=== PATIENT | male | born 1980 | race Caucasian/White ===

== ENCOUNTER 2017-04-18 10:13 | Observation (INO) ==
[2017-04-18] MEDS ORDERED: Aspirin 81 MG TAB.CHEW PO ONE (10:20)
[2017-04-18 10:40] LABS: Basophils # 0.1 K/mcL (0.0-0.2); Eosinophils # 0.1 K/mcL (0.0-0.6); Eosinophils % 0.7 %; Hematocrit 48.4 % (37.5-50.1); Hemoglobin 16.2 g/dL (12.9-16.9); Immature Granulocytes % 0.3 % (0-4); Lymphocytes # 1.7 K/mcL (0.6-4.6); Lymphocytes % 25.2 %; Mean Corpuscular HGB Conc 33.5 g/dL (31.6-35.5); Mean Corpuscular Hemoglobin 31.4 pg (28.0-33.3); Mean Corpuscular Volume 93.8 fL (83.0-100.0); Mean Platelet Volume 9.4 fL (9.4-12.4); Monocytes # 0.4 K/mcL (0.0-1.3); Monocytes % 6.1 %; Neutrophils # 4.5 K/mcL (1.6-8.9); Platelet Count 327 K/mcL (140-400); Red Blood Count 5.16 M/mcL (4.19-5.50); Red Cell Distribution Width 12.8 % (11.5-14.5); Segmented Neutrophils % 66.7 %
--- NOTE | 2017-04-18 10:41 | Emergency Department Note ---
Disposition Clinical Impression: Chest pain Qualifiers: Chest pain type: unspecified Qualified Code(s): R07.9 - Chest pain, unspecified Disposition: Still a Patient Condition: Undetermined Referrals: Kwame Hernandez DO [Primary Care Provider] - Forms: ED Satisfaction Letter Time of Disposition: 11:00 Chest Pain HPI - General Chief Complaint: ED Chest Pain Stated Complaint: chest pain Time Seen by Provider: 04/18/17 10:20 Source: patient Limitations: no limitations Vital Signs Reviewed: Yes Nursing Notes Reviewed: Yes - History of Present Illness HPI Narrative: Alert and oriented nontoxic-appearing 36-year-old male presents for evaluation of left-sided chest pain that radiates to the left shoulder and a sensation of "my heart has been racing". Symptoms began yesterday. The pain is made worsened by deep inspiration. He denies any cough, sputum, or hemoptysis. He denies any fevers or chills. He does states that at the onset of symptoms, he became diaphoretic and extremely short of breath. He states that his primary care provider is currently undergoing workup for evaluation of this patient's intermittent episodes of left-sided chest pain. He states he had a recent stress test done and is scheduled for an echocardiogram next week. Pt complaint: chest pain Onset (ago): day(s) (Yesterday) Duration: constant Pain Location: left chest Severity scale (1-10): 7 Pain Radiation: LUE Improves with: nothing Worsens with: exertion Associated symptoms: Reports: diaphoresis, dyspnea, palpitations. Denies: nausea, vomiting, fever, cough Treatments prior to arrival chest pain: none - Related Data Previous Rx's Medication Instructions Recorded Famotidine [Pepcid] 20 mg PO BID #20 tablet 09/25/16 Hyoscyamine SL [Levsin SL] 0.125 mg SL TID #10 tab.subl 09/25/16 Ondansetron ODT [Zofran ODT] 4 mg SL Q6HR #10 tab.rapdis 09/25/16 Sucralfate [Carafate] 1 gm PO QIDAC #20 tablet 09/25/16 Allergies Allergy/AdvReac Type Severity Reaction Status Date / Time sulfamethoxazole Allergy Swelling Verified 04/18/17 10:13 [From Bactrim] of Lip/Tongue/Throat trimethoprim [From Bactrim] Allergy Swelling Verified 04/18/17 10:13 of Lip/Tongue/Throat All systems ED: reviewed and negative except as stated. Constitutional: Denies: fever, chills, weakness, weight change Eyes: Denies: eye pain, eye discharge, vision change ENT ED: Denies: ear pain, throat pain, dental pain, hearing loss, epistaxis, congestion, dysphagia Cardiovascular: Reports: as per HPI, chest pain, palpitations. Denies: dyspnea on exertion, edema, syncope Respiratory: Reports: as per HPI, dyspnea. Denies: cough, wheezes, hemoptysis, stridor Gastrointestinal: Denies: abdominal pain, nausea, vomiting, diarrhea, constipation, hematemesis, melena, hematochezia Genitourinary: Denies: urgency, dysuria, frequency, hematuria Musculoskeletal: Denies: back pain, neck pain, arthralgia, myalgia Integumentary: Denies: rash, abrasion, lesions Neurological: Denies: headache, weakness, numbness, paresthesias, confusion, abnormal gait, vertigo Psychiatric: Denies: anxiety, depression, suicidal thoughts, homicidal thoughts , auditory hallucinations, visual hallucinations Endocrine: Denies: fatigue Hematological/Lymphatic: Denies: easy bleeding, easy bruising Allergic/Immunologic: Denies: facial swelling, urticaria Chest Pain PMH - Past Medical History Medical history: Reports: cancer, GERD, GI bleed Psychiatric history: Reports: no psych history - Social History Smoking Status: Current every day smoker Alcohol use: Reports: occasionally Drug use: Reports: none Physical Exam - General Limitations: no limitations General appearance: alert, in no apparent distress - Head Head exam: atraumatic, normocephalic, normal inspection - Eye Eye exam: Present: normal appearance, PERRL, EOMI. Absent: nystagmus - ENT ENT exam: mucous membranes moist - Neck Neck exam: Present: normal inspection, full ROM, trachea midline - Chest Chest inspection: Present: normal inspection, symmetric chest wall rise - Respiratory Respiratory exam: Present: normal lung sounds bilaterally. Absent: respiratory distress, wheezes, stridor, accessory muscle use, prolonged expiratory phase - Cardiovascular Cardiovascular exam: Present: normal rhythm, tachycardia, normal heart sounds - Abdominal Exam Abdominal exam: Present: soft, Non-Tender, normal bowel sounds - Extremities Exam Extremities exam: Present: normal inspection, full ROM. Absent: tenderness, pedal edema - Neurological Exam Neurological exam: Present: alert, oriented X3 - Psychiatric Psychiatric exam: Present: normal affect, normal mood - Skin Skin exam: Present: warm, dry, intact, normal color. Absent: rash Course Vital Signs Temperature 97.5 F L 04/18/17 10:14 Pulse Rate 108 04/18/17 10:14 Respiratory Rate 22 04/18/17 10:14 Blood Pressure 151/92 04/18/17 10:14 O2 Sat by Pulse Oximetry 97 04/18/17 10:14 Temperature 97.5 F L 04/18/17 10:14 Pulse Rate 99 04/18/17 11:03 Respiratory Rate 18 04/18/17 11:03 Blood Pressure 142/88 04/18/17 11:03 O2 Sat by Pulse Oximetry 96 04/18/17 11:03 Oxygen Delivery Oxygen Delivery Room Air Chest Pain - Medical Records Medical records reviewed: Yes I reviewed the patient's medical records. - Lab Data Result diagrams: 04/18/17 10:27 04/18/17 10:27 Lab Results 04/18/17 04/18/17 04/18/17 Range/Units 10:27 10:27 10:27 WBC 6.7 (4.3-11.1) K/mcL RBC 5.16 (4.19-5.50) M/mcL Hgb 16.2 (12.9-16.9) g/dL Hct 48.4 (37.5-50.1) % MCV 93.8 (83.0-100.0) fL MCH 31.4 (28.0-33.3) pg MCHC 33.5 (31.6-35.5) g/dL RDW 12.8 (11.5-14.5) % Plt Count 327 (140-400) K/mcL MPV 9.4 (9.4-12.4) fL Immature Gran % 0.3 (0-4) % Seg Neutrophils % 66.7 % Lymphocytes % 25.2 % Monocytes % 6.1 % Eosinophils % 0.7 % Basophils % 1.0 % Neutrophils # 4.5 (1.6-8.9) K/mcL Lymphocytes # 1.7 (0.6-4.6) K/mcL Monocytes # 0.4 (0.0-1.3) K/mcL Eosinophils # 0.1 (0.0-0.6) K/mcL Basophils # 0.1 (0.0-0.2) K/mcL PT 10.7 (9.4-12.1) Seconds INR 1.0 APTT 28.2 (26.0-36.0) Seconds Sodium 138 (136-145) mEq/L Potassium 3.6 (3.5-5.1) mEq/L Chloride 103 (98-107) mEq/L Carbon Dioxide 28 (23-29) mEq/L BUN 11 (6-20) mg/dL Creatinine 0.88 (0.70-1.30) mg/dL Est GFR ( Amer) > 60 (> 60) Est GFR (Non-Af Amer) > 60 (> 60) BUN/Creatinine Ratio 13 (6-26) Glucose 91 (70-105) mg/dL Calculated Osmolality 285 (280-300) Calcium 9.8 (8.6-10.3) mg/dL Troponin I (< 0.04) ng/mL 04/18/17 Range/Units 10:27 WBC (4.3-11.1) K/mcL RBC (4.19-5.50) M/mcL Hgb (12.9-16.9) g/dL Hct (37.5-50.1) % MCV (83.0-100.0) fL MCH (28.0-33.3) pg MCHC (31.6-35.5) g/dL RDW (11.5-14.5) % Plt Count (140-400) K/mcL MPV (9.4-12.4) fL Immature Gran % (0-4) % Seg Neutrophils % % Lymphocytes % % Monocytes % % Eosinophils % % Basophils % % Neutrophils # (1.6-8.9) K/mcL Lymphocytes # (0.6-4.6) K/mcL Monocytes # (0.0-1.3) K/mcL Eosinophils # (0.0-0.6) K/mcL Basophils # (0.0-0.2) K/mcL PT (9.4-12.1) Seconds INR APTT (26.0-36.0) Seconds Sodium (136-145) mEq/L Potassium (3.5-5.1) mEq/L Chloride (98-107) mEq/L Carbon Dioxide (23-29) mEq/L BUN (6-20) mg/dL Creatinine (0.70-1.30) mg/dL Est GFR ( Amer) (> 60) Est GFR (Non-Af Amer) (> 60) BUN/Creatinine Ratio (6-26) Glucose (70-105) mg/dL Calculated Osmolality (280-300) Calcium (8.6-10.3) mg/dL Troponin I < 0.03 (< 0.04) ng/mL - EKG Data EKG attestation: Yes I reviewed and interpreted this EKG. EKG results narrative: EKG reviewed by Dr. Meade as well. EKG shows a sinus tachycardia with nonspecific ST and T-wave abnormality and a rate of 105 bpm. [place] interval 149, QRS duration 86, QT/QTc interval 307/368. No ectopy noted. No significant change when compared to an EKG dated from 03/21/17. S.B.A.Francisca. - S.Esther.A.RCassandra Situation: Demographics, MOA Background: Presenting Complaint, Relevant PMH, Meds, & Allergies Assessment: Vital Signs, Course and respsone to treatment, Exam Concerns, Patient/Family Expectation, Pertinant Lab Results, Outstanding Labs Recommendation: Barrier(s) to disposition, Recommendation based on pending studies, treatments, or consults S.B.A.R. Report Given to: Dr. Jose Montgomery Repor Time: 11:00
[2017-04-18 10:44] LABS: Prothrombin Time 10.7 Seconds (9.4-12.1)
[2017-04-18 10:47] LABS: Activated Partial Thrombo Time 28.2 Seconds (26.0-36.0)
[2017-04-18 11:13] LABS: BUN/Creatinine Ratio 13 (6-26); Blood Urea Nitrogen 11 mg/dL (6-20); Calcium 9.8 mg/dL (8.6-10.3); Carbon Dioxide 28 mEq/L (23-29); Chloride 103 mEq/L (98-107); Glucose 91 mg/dL (70-105); Osmolality,Calculated 285 (280-300); Potassium 3.6 mEq/L (3.5-5.1); Sodium 138 mEq/L (136-145); eGFR For African Americans > 60 (> 60); eGFR For Non-African Americans > 60 (> 60)
[2017-04-18] MEDS: Nitroglycerin 0.4 MG TAB.SUBL SL PRN ×2 (12:11→12:17)
--- NOTE | 2017-04-18 12:54 | Emergency Department Note ---
Disposition Clinical Impression: Chest pain Qualifiers: Chest pain type: unspecified Qualified Code(s): R07.9 - Chest pain, unspecified Disposition: Admitted As Inpatient Condition: Fair Referrals: Kwame Hernandez DO [Primary Care Provider] - Forms: ED Satisfaction Letter Time of Disposition: 12:53 Chest Pain HPI - General Chief Complaint: ED Chest Pain Stated Complaint: chest pain Time Seen by Provider: 04/18/17 10:20 Source: patient Mode of arrival: ambulatory Limitations: no limitations Vital Signs Reviewed: Yes Nursing Notes Reviewed: Yes - History of Present Illness HPI Narrative: Patient was evaluated by the primary provider. Please see their history of physical for complete documentation. Pain Location: left chest Severity scale (1-10): 7 Improves with: nothing Worsens with: exertion Associated symptoms: Reports: diaphoresis, dyspnea, palpitations. Denies: nausea, vomiting, fever, cough - Related Data Allergies Allergy/AdvReac Type Severity Reaction Status Date / Time sulfamethoxazole Allergy Swelling Verified 04/18/17 10:13 [From Bactrim] of Lip/Tongue/Throat trimethoprim [From Bactrim] Allergy Swelling Verified 04/18/17 10:13 of Lip/Tongue/Throat Constitutional: Denies: fever, chills, weakness, weight change Eyes: Denies: eye pain, eye discharge, vision change ENT ED: Denies: ear pain, throat pain, dental pain, hearing loss, epistaxis, congestion, dysphagia Cardiovascular: Reports: as per HPI, chest pain, palpitations. Denies: dyspnea on exertion, edema, syncope Respiratory: Reports: as per HPI, dyspnea. Denies: cough, wheezes, hemoptysis, stridor Gastrointestinal: Denies: abdominal pain, nausea, vomiting, diarrhea, constipation, hematemesis, melena, hematochezia Genitourinary: Denies: urgency, dysuria, frequency, hematuria Musculoskeletal: Denies: back pain, neck pain, arthralgia, myalgia Integumentary: Denies: rash, abrasion, lesions Neurological: Denies: headache, weakness, numbness, paresthesias, confusion, abnormal gait, vertigo Psychiatric: Denies: anxiety, depression, suicidal thoughts, homicidal thoughts , auditory hallucinations, visual hallucinations Endocrine: Denies: fatigue Hematological/Lymphatic: Denies: easy bleeding, easy bruising Allergic/Immunologic: Denies: facial swelling, urticaria Chest Pain PMH - Past Medical History Medical history: Reports: cancer, GERD, GI bleed Psychiatric history: Reports: no psych history - Social History Smoking Status: Current every day smoker Alcohol use: Reports: occasionally Drug use: Reports: none Physical Exam - General Limitations: no limitations General appearance: alert, in no apparent distress Course Course Narrative: 36-year-old male presents for evaluation of chest pain. Patient also noted to be tachycardic. Patient states he was recently evaluated in the past 3 months with an exercise stress test was a Holter monitor. States that he has been tachycardic in the 150s at home. Patient does note that he has history of anxiety. Patient exercise stress test revealed indeterminate for ischemia given baseline ST abnormality. Patient had workup obtained by the primary provider. - Reevaluation(s) Reevaluation #1: Patient was given nitroglycerin which helped relieve his pain. Time: 12:52 Vital Signs Temperature 97.5 F L 04/18/17 10:14 Pulse Rate 108 04/18/17 10:14 Respiratory Rate 22 04/18/17 10:14 Blood Pressure 151/92 04/18/17 10:14 O2 Sat by Pulse Oximetry 97 04/18/17 10:14 Temperature 97.5 F L 04/18/17 10:14 Pulse Rate 117 04/18/17 12:22 Respiratory Rate 18 04/18/17 12:22 Blood Pressure 107/77 04/18/17 12:22 O2 Sat by Pulse Oximetry 95 04/18/17 12:22 Oxygen Delivery Oxygen Delivery Room Air Chest Pain - MDM Narrative Medical decision making narrative: Patient presents for evaluation of chest pain as well as tachycardia. Patient does have a recent workup in the past several months with an exercise stress test which was indeterminate. Patient was given nitroglycerin which relieved his pain. Patient does have an element of anxiety however given the patient's indeterminate stress test patient would likely benefit from inpatient mission with a formal nuclear stress test. Patient does have outpatient schedule of an echo which can be obtained at the same time of the stress test. Patient had a negative d-dimer with low pretest probability of pulmonary and was in. Patient was given aspirin and nitroglycerin with relief of pain. Given these findings the patient is best evaluated as an inpatient. - Medical Records Medical records reviewed: Yes I reviewed the patient's medical records. - Lab Data Lab results reviewed: Yes I reviewed the patient's lab results. Result diagrams: 04/18/17 10:27 04/18/17 10:27 Lab Results 04/18/17 04/18/17 04/18/17 Range/Units 10:27 10:27 10:27 WBC 6.7 (4.3-11.1) K/mcL RBC 5.16 (4.19-5.50) M/mcL Hgb 16.2 (12.9-16.9) g/dL Hct 48.4 (37.5-50.1) % MCV 93.8 (83.0-100.0) fL MCH 31.4 (28.0-33.3) pg MCHC 33.5 (31.6-35.5) g/dL RDW 12.8 (11.5-14.5) % Plt Count 327 (140-400) K/mcL MPV 9.4 (9.4-12.4) fL Immature Gran % 0.3 (0-4) % Seg Neutrophils % 66.7 % Lymphocytes % 25.2 % Monocytes % 6.1 % Eosinophils % 0.7 % Basophils % 1.0 % Neutrophils # 4.5 (1.6-8.9) K/mcL Lymphocytes # 1.7 (0.6-4.6) K/mcL Monocytes # 0.4 (0.0-1.3) K/mcL Eosinophils # 0.1 (0.0-0.6) K/mcL Basophils # 0.1 (0.0-0.2) K/mcL PT 10.7 (9.4-12.1) Seconds INR 1.0 APTT 28.2 (26.0-36.0) Seconds D-Dimer (0-500) ng/mLFEU Sodium 138 (136-145) mEq/L Potassium 3.6 (3.5-5.1) mEq/L Chloride 103 (98-107) mEq/L Carbon Dioxide 28 (23-29) mEq/L BUN 11 (6-20) mg/dL Creatinine 0.88 (0.70-1.30) mg/dL Est GFR ( Amer) > 60 (> 60) Est GFR (Non-Af Amer) > 60 (> 60) BUN/Creatinine Ratio 13 (6-26) Glucose 91 (70-105) mg/dL Calculated Osmolality 285 (280-300) Calcium 9.8 (8.6-10.3) mg/dL Troponin I (< 0.04) ng/mL 04/18/17 04/18/17 Range/Units 10:27 10:27 WBC (4.3-11.1) K/mcL RBC (4.19-5.50) M/mcL Hgb (12.9-16.9) g/dL Hct (37.5-50.1) % MCV (83.0-100.0) fL MCH (28.0-33.3) pg MCHC (31.6-35.5) g/dL RDW (11.5-14.5) % Plt Count (140-400) K/mcL MPV (9.4-12.4) fL Immature Gran % (0-4) % Seg Neutrophils % % Lymphocytes % % Monocytes % % Eosinophils % % Basophils % % Neutrophils # (1.6-8.9) K/mcL Lymphocytes # (0.6-4.6) K/mcL Monocytes # (0.0-1.3) K/mcL Eosinophils # (0.0-0.6) K/mcL Basophils # (0.0-0.2) K/mcL PT (9.4-12.1) Seconds INR APTT (26.0-36.0) Seconds D-Dimer 238 (0-500) ng/mLFEU Sodium (136-145) mEq/L Potassium (3.5-5.1) mEq/L Chloride (98-107) mEq/L Carbon Dioxide (23-29) mEq/L BUN (6-20) mg/dL Creatinine (0.70-1.30) mg/dL Est GFR ( Amer) (> 60) Est GFR (Non-Af Amer) (> 60) BUN/Creatinine Ratio (6-26) Glucose (70-105) mg/dL Calculated Osmolality (280-300) Calcium (8.6-10.3) mg/dL Troponin I < 0.03 (< 0.04) ng/mL - Radiology Data Radiology results reviewed: Yes I reviewed the patient's radiology results. Chest X-Ray 04/18/17 10:21 IMPRESSION: Normal chest. D/ / 04/18/2017 11:46:24 Chris Lynn MD / manda Interpreting Provider: Chris Lynn MD Ul[facility] - Ul[facility] Situation: Demographics Background: Presenting Complaint Assessment: Vital Signs, Course and respsone to treatment, Patient/Family Expectation Recommendation: Barrier(s) to disposition, Recommendation based on pending studies, treatments, or consults Ulises Report Given to: Dr. Asha Montgomery Repor Time: 12:53 Attestation Statement - Attestation Attestation: I examined this patient and my medical decision-making was reviewed with the Resident Physician, Dr. Solano. I agree with the documented findings, disposition and treatment plan as described except to the extent set forth below. Patient is a 36-year-old white male who presents to the emergency department with a 2 day history of intermittent left-sided chest discomfort that is worse with inspiration associated with diaphoresis, nausea and shortness of breath. Patient has been evaluated in the past for chest pain secondary to an abnormal EKG and has undergone Holter monitoring, exercise stress testing and has an echo pending that was scheduled by his family doctor 2 weeks ago. Patient states pain began intermittently approximately 48 hours ago at rest and patient arrives with ongoing pain that he rates about an 8 out of 10 in severity. Patient is diaphoretic on my exam nauseated and appears anxious. I agree with patient's physical exam findings as documented. Patient is tachycardic in the room during my assessment but otherwise vitals stable. Patient's EKG shows sinus tachycardia at [address] changes. His is unchanged from his prior EKG that was used for comparison from March 21 of this year. Patient's lab evaluation including d-dimer and troponin are within normal limits , drug screen is positive for marijuana, chest x-ray is unremarkable. Asians pain was relieved with aspirin and nitroglycerin. Case was discussed with cardiology and patient will be admitted to the hospitalist service for further evaluation and management of this chest pain.
[2017-04-18] MEDS ORDERED: Naloxone 0.4 MG/ML INJ IVP PRN (12:58)
[2017-04-18 13:21] LABS: Bilirubin,Urine Small (Negative); Blood,Urine Negative (Negative); Clarity,Urine Clear (Clear); Color,Urine Yellow (Yellow); Glucose,Urine (UA) Normal (Normal); Ketones,Urine 15 mg/dL (Negative); Leukocyte Esterase,Urine Negative (Negative); Nitrite,Urine Negative (Negative); Protein,Urine Trace mg/dL (Neg-Trace); Specific Gravity,Urine 1.026 (1.010-1.025); Urobilinogen,Urine Normal (Normal)
--- NOTE | 2017-04-18 13:21 | Internal Med History&Physical ---
<Gerald Villegas - Last Filed: 04/18/17 13:18> Date of Encounter: 04/18/17 Time of Encounter: 13:18 Assessment and Plan (1) Chest pain Current visit: Yes Status: Acute ASSESSMENT: - Chest pain of unclear etiology. No prior h/o UT, or CAD and no fam hx. He is anxious upon exam and does have a h/o anxiety which is likely contributing to his pain/pressure/discomfort. CXR negative. Continues to have pressure. He reports that it worsened with SL nitro but also admits that his anxiety increased with the SL nitro as well. PLAN: - cardiac enzymes x 2 q 6 hr - EKG with nonspecific ST &T wave abnormalities - ASA 325 in ED and 81mg daily. Not on statin at home; give one dose simvastatin 40 now then Q HS while inpatient - SL nitro PRN for CP - O2 by NC PRN to keep SpO2 greater than 92% - Urine toxic screen obtained-pending - CBC, BMP in AM - Fasting lipids - Ambulate ad sandra for DVT prophylaxis - 2D Echo now - Nuclear stress in the am - Cardiology consult depending upon result of stress and TTE Qualifiers: Chest pain type: unspecified Qualified Code(s): R07.9 - Chest pain, unspecified (2) Anxiety Current visit: Yes Status: Acute He appears to be anxious upon examination Xanax half milligram by mouth 3 times a day when necessary (3) DVT prophylaxis Current visit: Yes Status: Acute Low risk for DVT, ambulate ad sandra. Internal Medicine - H&P: HPI Chief complaint: chest pain, tachycardia Admitted From: Home Plans for Post Hospital Care: Home History of present illness: Mr. Osborn is a 36 year old male with a PMH of testicular cancer. He presents to [facility] ED today for evaluation of ongoing chest discomfort/pressure. He reports chest pain is midsternal with radiation to the right shoulder and numbness and tingling into his right hand. He is additionally reporting tachycardia and intermittent shortness of breath as well as nausea and diaphoresis. The chest discomfort is described as nonexertional discomfort occurring intermittently at rest and with activity. He does not improve with rest. He does have a history of anxiety. He denies any fever, chills, abdominal pain, unilateral extremity swelling or pain. He recently underwent an exercise stress test and was revealed to be indeterminate for ischemia given baseline ST abnormalities. He was scheduled to have an outpatient echocardiogram for further evaluation and follow-up with cardiology. Initial troponin negative, no changes on EKG from prior. Past Med Surg Social Fam HX - Past Medical History Medical history: cancer, GERD, GI bleed Psychiatric history: no psych history - Social History Smoking Status: Current every day smoker Smokeless Tobacco Status: No Alcohol use: occasionally Drug use: none - Additional Family History Additional family history: Reports no family history Internal Medicine - H&P: Meds FLUoxetine HCl [PROzac] 20 mg PO DAILY 04/18/17 [History] Omeprazole [PriLOSEC] 40 mg PO DAILY 04/18/17 [History] Testosterone Cypionate [Depo-Testosterone] 200 mg IM Q2W 04/18/17 [History] 3 Allergy/AdvReac Type Severity Reaction Status Date / Time sulfamethoxazole Allergy Swelling Verified 04/18/17 10:13 [From Bactrim] of Lip/Tongue/Throat trimethoprim [From Bactrim] Allergy Swelling Verified 04/18/17 10:13 of Lip/Tongue/Throat All Systems PM: A 10-system review of systems was performed and is negative for pertinent findings except as documented above in the HPI. - Constitutional Constitutional: as per HPI - EENT Eyes: no change in vision, no discharge, no pain, no photophobia Nose, mouth and throat: no dysphagia, no nasal discharge, no neck pain, no sore throat - Cardiovascular Cardiovascular ROS IM: as per HPI, lightheadedness, palpitations, syncope ( history), no irregular heart rhythm, no orthopnea, no paroxysmal nocturnal dyspnea - Respiratory Respiratory: as per HPI - Gastrointestinal Gastrointestinal: no abdominal pain, no diarrhea, no hematemesis, no hematochezia, no melena, no nausea, no vomiting - Musculoskeletal Musculoskeletal ROS IM: no numbness, no tingling - Integumentary Integumentary IM: no rash, no unusual bruising - Neurological Neurological ROS: no confusion, no convulsions, no focal weakness, no numbness, no tingling, no tremor(s) - Constitutional Vitals: Temp Pulse Resp BP Pulse Ox 97.5 F L 100 18 136/95 98 04/18/17 10:14 04/18/17 13:15 04/18/17 13:15 04/18/17 13:15 04/18/17 13:15 General appearance: Present: cooperative, A&O X 3, no acute distress, answers questions appropriately - Head Head exam: Present: atraumatic, normocephalic - Eye Eye exam: Present: PERRL, conjuntiva pink, sclera anicteric Pupils: Present: PERRL - Neck Neck exam general surgery: Present: supple, trachea midline. Absent: lymphadenopathy - Respiratory Respiratory exam: Present: CTAB. Absent: accessory muscle use, rales, rhonchi, wheezes - Cardiovascular Cardiovascular exam: Present: RRR, +S1, +S2. Absent: diastolic murmur, gallop, rubs, systolic murmur - GI/Abdominal GI/Abdominal exam: Present: normal bowel sounds, soft, no peritoneal signs. Absent: distended, tenderness - Extremities Exam Extremities exam: Present: warm, radial pulses palpable and symmetrical. Absent : calf tenderness, cyanotic, pedal edema - Neurological Exam Neurological exam: Present: CN II-XII intact, oriented X3, no focal deficits. Absent: pronater drift, facial droop, speech deficit - Psychiatric Psychiatric exam: Present: anxious (Mildly anxious) - Skin Skin exam: Present: dry, intact Internal Med - H&P Results - Labs CBC & Chem 7: 04/18/17 10:27 04/18/17 10:27 - EKG Data -: EKG Interpreted by Myself EKG shows normal: sinus rhythm - EKG Data Prior EKG available for review: yes When compared to previous EKG: there is no significant change EKG comments: Sinus tachycardia with rate of 105, nonspecific ST and T-wave abnormalities also present on prior EKGs 04/18/17 13:25 - Impressions Impressions Chest X-Ray 04/18/17 10:21 IMPRESSION: Normal chest. D/ / 04/18/2017 11:46:24 Chris Lynn MD / manda Interpreting Provider: Chris Lynn MD <Urbano Barry - Last Filed: 04/18/17 14:56> Date of Encounter: 04/18/17 Internal Medicine - H&P: HPI History of present illness: Mr. Osborn is a 36 year old male Past Med Surg Social Fam HX - Family History Mother History Unknown: Yes Living Status: Still Living Father History Unknown: Yes Living Status: Still Living All Systems PM: A 10-system review of systems was performed and is negative for pertinent findings except as documented above in the HPI. - Constitutional Vitals: Temp Pulse Resp BP Pulse Ox 98.4 F 99 16 126/75 96 04/18/17 14:29 04/18/17 14:29 04/18/17 14:29 04/18/17 14:29 04/18/17 14:29 Internal Med - H&P Results - Labs CBC & Chem 7: 04/18/17 10:27 04/18/17 10:27 Labs: Urine 04/18/17 Range/Units 13:12 Urine Color Yellow (Yellow) Urine Clarity Clear (Clear) Urine pH 6.0 (5.0-8.0) pH Units Ur Specific [place] 1.026 H (1.010-1.025) Urine Protein Trace (Neg-Trace) mg/dL Urine Glucose (UA) Normal (Normal) mg/dL - Attending Attestation I examined this patient and my medical decision-making was reviewed with the Resident Physician. I agree with the documented findings, disposition and treatment plan as described except to the extent set forth below.
[2017-04-18 13:22] LABS: Bacteria,Urine None Seen per hpf (None-Few); Hyaline Casts,Urine None Seen per lpf (None-Few); RBC,Urine 0-3 per hpf (0-3); Squamous Epithelial Cell,Urine Moderate per lpf (None-Few); WBC,Urine 0-3 per hpf (0-3)
[2017-04-18 13:25] LABS: Amphetamine Screen,Urine Positive ng/mL (Cutoff=1000); Barbiturate Screen,Urine Negative ng/mL (Cutoff=200); Benzodiazepines Screen,Urine Negative ng/mL (Cutoff=200); Cannabinoid Screen,Urine Negative ng/mL (Cutoff = 50); Cocaine Screen,Urine Negative ng/mL (Cutoff= 300); Opiate Screen,Urine Negative ng/mL (Cutoff=300); Phencyclidine Screen,Urine Negative ng/mL (Cutoff=25)
[2017-04-18] MEDS: ALPRAZolam 0.5 MG TABLET PO PRN (16:35)
[2017-04-18] MEDS: SUMAtriptan succinate 25 MG TABLET PO PRN (17:55)
[2017-04-18] MEDS ORDERED: *HR* Heparin 5,000 UNIT/ML VIAL SQ SCH (18:00)
[2017-04-18] MEDS: Famotidine 20 MG TABLET PO SCH (20:31)
[2017-04-18] MEDS ORDERED: Ketorolac 30 MG/ML VIAL IVP ONE (21:21)
[2017-04-19 05:49] LABS: Hematocrit 48.3 % (37.5-50.1); Hemoglobin 15.9 g/dL (12.9-16.9); Mean Corpuscular HGB Conc 32.9 g/dL (31.6-35.5); Mean Corpuscular Hemoglobin 31.1 pg (28.0-33.3); Mean Corpuscular Volume 94.5 fL (83.0-100.0); Mean Platelet Volume 9.6 fL (9.4-12.4); Platelet Count 273 K/mcL (140-400); Red Blood Count 5.11 M/mcL (4.19-5.50); Red Cell Distribution Width 13.1 % (11.5-14.5)
[2017-04-19] MEDS: Nitroglycerin 0.4 MG TAB.SUBL SL PRN (06:08)
[2017-04-19] MEDS ORDERED: Regadenoson 0.4 MG/5 ML SYRINGE IVP ONE (06:09)
[2017-04-19 06:50] LABS: BUN/Creatinine Ratio 16 (6-26); Blood Urea Nitrogen 15 mg/dL (6-20); Calcium 9.2 mg/dL (8.6-10.3); Carbon Dioxide 25 mEq/L (23-29); Chloride 106 mEq/L (98-107); Chol/HDL Ratio 3.7 (0-4.9); Cholesterol 161 mg/dL (< 200); Glucose 115 mg/dL (70-105); HDL Cholesterol 44 mg/dL (40-59); LDL Cholesterol,Calculated 98 mg/dL (0-99); Osmolality,Calculated 288 (280-300); Potassium 3.9 mEq/L (3.5-5.1); Sodium 138 mEq/L (136-145); Triglycerides 94 mg/dL (< 150); eGFR For African Americans > 60 (> 60); eGFR For Non-African Americans > 60 (> 60)
[2017-04-19] MEDS: Famotidine 20 MG TABLET PO SCH (07:41)
[2017-04-19] MEDS ORDERED: Aspirin 81 MG TAB.CHEW PO SCH (09:00)
[2017-04-19 13:45] VITALS: BP 133/82
[2017-04-19] MEDS: SUMAtriptan succinate 25 MG TABLET PO PRN (14:42)
[2017-04-19] MEDS: ALPRAZolam 0.5 MG TABLET PO PRN (14:42)
--- NOTE | 2017-04-19 15:38 | Discharge Summary ---
Date of Encounter: 04/19/17 Time of Encounter: 15:36 - Discharge Diagnosis (1) Anxiety Priority: Primary Status: Acute Comments: Patient is very anxious and states his medication is not working. He states he is intolerant of some of the medications and others do not work for him I instructed him to follow-up with his exterior interior specialist this week coming he needs to call make an appointment. He can also follow up with his PCP. (2) Chest pain Priority: Primary Status: Acute Comments: Patient is staring pain-free at this time. Stress test was normal study, chest x-ray was negative, troponins were negative, echo reviewed with no abnormalities. Qualifiers: Chest pain type: unspecified Qualified Code(s): R07.9 - Chest pain, unspecified (3) Tobacco abuse Priority: Primary Status: Acute Comments: Cessation recommended (4) GERD (gastroesophageal reflux disease) Priority: Secondary Status: Chronic Comments: Continue home medication Qualifiers: Esophagitis presence: esophagitis presence not specified Qualified Code(s) : K21.9 - Gastro-esophageal reflux disease without esophagitis - Discharge Medications Home Medications: FLUoxetine HCl [Prozac] 20 mg PO DAILY 04/18/17 [History] Omeprazole [PriLOSEC] 40 mg PO DAILY 04/18/17 [History] Testosterone Cypionate [Depo-Testosterone] 200 mg IM Q2W 04/18/17 [History] Allergies/Adverse Reactions: 3 Allergy/AdvReac Type Severity Reaction Status Date / Time sulfamethoxazole Allergy Swelling Verified 04/18/17 10:13 [From Bactrim] of Lip/Tongue/Throat trimethoprim [From Bactrim] Allergy Swelling Verified 04/18/17 10:13 of Lip/Tongue/Throat Procedures/tests Complete & Pending: Procedures Performed prior 72 hours Category Date Time Status EKG [ECG 12 lead ECG] [ECG] Stat Y 04/18/17 20:50 Ordered Date of admission: 04/18/17 13:04 Primary care physician: Kwame Hernandez DO Discharging clinician: Belén Zavala Anticipated date of discharge: 04/19/17 - Patient Status Disposition: Home, Self-Care Condition: Good Functional capacity at discharge: independent ambulation Overall status at discharge: patient is back to baseline - Discharge Instructions Instructions: Chest Pain (DC), Anxiety (DC) Follow Up With: Kwame Hernandez DO [Primary Care Provider] - Additional Instructions: Follow-up with your primary care physician within the next week. Also follow- up with your behavioral clinic regarding your medications not controlling anxiety. - Diet and Activity Activity: resume usual activities as tolerated Diet: advance to your usual diet Interval History: Currently pain free but remains very anxious. Will follow up with his exterior interior specialist. Hospital course: Mr. Osborn is a 36 year old male who presented to the emergency room with ongoing chest discomfort and pressure. He reported the chest pain was midsternal with radiation of the right shoulder with numbness and tingling to his right hand. He also stated he had some tachycardia and shortness of breath as well as nausea and sweats. He stated that chest discomfort was nonexertional occurring intermittently at rest and with activity. He stated did not improve with rest. He has a history of severe anxiety and follows in the behavioral clinic in the community. Multiple medications have not worked for him. He had no fevers, chills, abdominal pain or syncope. He had a repeat stress test today. He also had an echocardiogram.. His urine screen was positive for phentermine. His chest x-ray was normal. He does continue to smoke. He verbalized understanding and has discharge instructions he will follow-up with his PCP and exterior interior specialist. - Time Spent with Patient Total time spent providing and/or coordinating discharge services: Less than 30 minutes - Constitutional Vitals: Temp Pulse Resp BP Pulse Ox 98.9 F 101 18 133/82 99 04/19/17 13:44 04/19/17 13:44 04/19/17 13:44 04/19/17 13:44 04/19/17 13:44 General appearance: Present: cooperative, A&O X 3, no acute distress, answers questions appropriately - Head Head exam: Present: atraumatic, normocephalic - Eye Eye exam: Present: PERRL, conjuntiva pink, sclera anicteric Pupils: Present: PERRL - Neck Neck exam general surgery: Present: supple, trachea midline. Absent: lymphadenopathy - Respiratory Respiratory exam: Present: CTAB. Absent: accessory muscle use, rales, rhonchi, wheezes - Cardiovascular Cardiovascular exam: Present: RRR, +S1, +S2. Absent: diastolic murmur, gallop, rubs, systolic murmur - GI/Abdominal GI/Abdominal exam: Present: normal bowel sounds, soft, no peritoneal signs. Absent: distended, tenderness - Extremities Exam Extremities exam: Present: warm, radial pulses palpable and symmetrical. Absent : calf tenderness, cyanotic, pedal edema - Neurological Exam Neurological exam: Present: CN II-XII intact, oriented X3, no focal deficits. Absent: pronater drift, facial droop, speech deficit - Psychiatric Psychiatric exam: Present: anxious. Absent: homicidal ideation, suicidal ideation - Skin Skin exam: Present: dry, intact, warm
--- NOTE | 2017-04-20 10:38 | Electrocardiograph Report ---
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
--- NOTE | 2017-04-21 07:27 | Electrocardiograph Report ---
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
== END 2017-04-19 16:02 | disposition home or self-care (01) ==
LOC: EMEROO 10:13 → 3BNU 10:13
PROVIDERS: ADMIT Internal Medicine Cardiovascular Disease; ATTEND Registered Nurse